=== PATIENT | female | born 1960 | race Caucasian/White ===

== ENCOUNTER → 2016-07-20 | Outpatient (CLI) | payer MEDICAID ==
[2016-07-20 08:35] LABS: Basophils % (A) 1 %; CH 31.8; CHCM 32.8; Eosinophils # (A) 0.1 k/uL (0-0.7); Eosinophils % (A) 3 %; HCT 42.3 % (34.0-46.0); HDW 2.02; HGB 13.6 gm/dL (11.4-16.0); Luc # (Auto) 0.16; Luc % (Auto) 4; Lymphocytes # (A) 1.8 k/uL (1.0-4.8); Lymphocytes % (A) 45 %; MCH 31.4 pg (25.0-35.0); MCHC 32.2 g/dL (31.0-37.0); MCV 97.5 fL (80.0-100.0); Mean Platelet Volume 6.9; Monocytes # (A) 0.3 k/uL (0-1.0); Monocytes % (A) 6 %; Neutrophils # (A) 1.6 k/uL (1.3-7.7); Neutrophils % (A) 41 %; RBC 4.34 m/uL (3.80-5.40); RDW 13.1 % (11.5-15.5); WBC (Perox) 4.06
[2016-07-20 08:42] LABS: Appearance,Urine Clear (Clear); Bilirubin,Urine Negative (Negative); Glucose,Urine (UA) Negative (Negative); Ketones,Urine Negative (Negative); Leukocyte Esterase,Urine Negative (Negative); Nitrite,Urine Negative (Negative); Protein,Urine Negative (Negative); Specific Gravity,Urine 1.009 (1.001-1.035); UA Billing (MACRO vs. MICRO) CHEM; Urobilinogen,Urine <2.0 mg/dL (<2.0)
[2016-07-20 08:43] LABS: ALT 33 U/L (9-52); AST 26 U/L (14-36); Alkaline Phosphatase 118 U/L (38-126); Anion Gap 8 mmol/L; Blood Urea Nitrogen 17 mg/dL (7-17); Calcium 9.4 mg/dL (8.4-10.2); Carbon Dioxide 30 mmol/L (22-30); Chloride 103 mmol/L (98-107); Cholesterol 250 mg/dL (<200); Creatine Kinase 75 U/L (30-135); Glucose 93 mg/dL (74-99); HDL Cholesterol 88 mg/dL (40-60); Non-African American GFR(MDRD) >60 (>60 ml/min/1.73 sqM); Potassium 4.1 mmol/L (3.5-5.1); Sodium 141 mmol/L (137-145); Total Bilirubin 0.7 mg/dL (0.2-1.3); Total Protein 7.3 g/dL (6.3-8.2); Triglycerides 65 mg/dL (<150); Uric Acid 4.2 mg/dL (3.7-7.4)
[2016-07-20 11:12] LABS: Hemoglobin A1C 5.6 % (4.2-6.1)
== END | disposition home or self-care (01) ==
LOC: LABWHC1 07:54
PROVIDERS: ATTEND Internal Medicine
DX: Z00.00 Encounter for general adult medical examination without abnormal findings (principal); M89.9 Disorder of bone, unspecified; E78.00 Pure hypercholesterolemia, unspecified; F41.9 Anxiety disorder, unspecified; E55.9 Vitamin D deficiency, unspecified
CPT/HCPCS: 36415; 80053; 80061; 81003; 82306; 82550; 83036; 84439; 84443; 84550; 85025

== ENCOUNTER → 2016-08-08 | Outpatient (CLI) | payer MEDICAID ==
--- NOTE | 2016-08-08 21:00 | WWHP ---
DATE OF SERVICE: 08/08/2016 CHIEF COMPLAINT: Patient is here for her routine gynecologic exam and mammogram. HPI: This is a 56-year-old P4, G4-0-0-3 with an LMP of 2008. She is status post vaginal hysterectomy for benign reasons. She has been using Estrace vaginal cream because of vaginal dryness and she has noticed significant improvement with this. She also is on Paroxetine for hot flashes, which does seem to help. She is without gynecologic complaints. PAST MEDICAL HISTORY: SVT with PVCs, benign paroxysmal positional vertigo and gastroesophageal reflux disease. Also she does have a history of mildly elevated cholesterol. Currently not requiring medications. MEDICATIONS: 1. Verapamil 40 mg b.i.d. 2. Paroxetine 10 mg daily. 3. Estrace vaginal cream twice weekly. 4. Vitamin B complex daily. 5. Magnesium 400 mg daily. 6. Vitamin D3 5000 units daily. 7. Biotin 5000 mcg daily. 8. Calcium 500 mg at bedtime. 9. Omeprazole 40 mg p.r.n. ALLERGIES: PENICILLIN AND SULFA BOTH OF WHICH CAUSED HIVES. PAST SURGICAL HISTORY: Vaginal hysterectomy in 2008, appendectomy age 5, laparoscopic cholecystectomy and D&C in the past. She also had device placed to help her monitor her heart rhythm. 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 SOCIAL HISTORY: She denies tobacco and drug use and has about 2 alcoholic drinks per year. 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 REVIEW OF SYSTEMS: She has gained 3 pounds over the last year. She denies respiratory, cardiac, or GI problems. PHYSICAL EXAM: Blood pressure 97/56. Height 5 feet 4 inches. Weight 158 pounds. Temperature 98.6, pulse 75. This is a well-developed, well-nourished white female who is alert and oriented x3 in no acute distress. HEENT is within normal limits. NECK: Supple without mass or thyromegaly. CHEST AND LUNGS: Clear to auscultation. HEART: Regular rate and rhythm. Breasts are without mass or discharge. Axillary exam is negative for adenopathy. BACK: Negative for CVA tenderness. ABDOMEN: Soft, nontender, without palpable masses. PELVIC EXAM: External genitalia reveals mild atrophy without lesions. Vagina reveals mild atrophy without lesions. There is no evidence of prolapse. Bimanual exam is negative for mass or tenderness. Rectovaginal exam negative for mass or tenderness and is negative for occult blood. EXTREMITIES: Nontender. IMPRESSION: 1. A 56-year-old menopausal female, status post vaginal hysterectomy for benign reasons with normal gynecologic exam. 2. Improvement of vaginal dryness with estrogen cream. PLAN: 1. Pap smears have been discontinued. 2. Self-breast examination was discussed. 3. Mammogram will be done today. 4. Osteoporosis prevention was discussed. 5. Continue Estrace vaginal cream twice weekly. 6. She will return in one year.
--- NOTE | 2016-08-10 10:49 | MM ---
Reason for exam: screening (asymptomatic). Last mammogram was performed 1 year and 1 month ago. Physical Findings: A clinical breast exam by your physician is recommended on an annual basis and results should be correlated with mammographic findings. MG 3D Screening Mammo W/Cad Bilateral CC and MLO view(s) were taken. Prior study comparison: July 20, 2015, bilateral MG 3d screening mammo w/cad. The breast tissue is heterogeneously dense. This may lower the sensitivity of mammography. Electronic device left breast. No significant changes when compared with prior studies. ASSESSMENT: Benign, BI-RAD 2 RECOMMENDATION: Routine screening mammogram of both breasts in 1 year.
== END ==
LOC: WWCWWP 10:01
PROVIDERS: ATTEND Obstetrics & Gynecology
DX: Z12.31 Encounter for screening mammogram for malignant neoplasm of breast (principal)
CPT/HCPCS: 77063; G0202

== ENCOUNTER → 2017-09-11 | Outpatient (CLI) | payer MEDICAID ==
[2017-09-11 08:57] LABS: Basophils % (A) 0 %; Eosinophils # (A) 0.1 k/uL (0-0.7); Eosinophils % (A) 4 %; HCT 43.4 % (34.0-46.0); HGB 14.1 gm/dL (11.4-16.0); Lymphocytes # (A) 1.6 k/uL (1.0-4.8); Lymphocytes % (A) 44 %; MCH 30.8 pg (25.0-35.0); MCHC 32.6 g/dL (31.0-37.0); MCV 94.7 fL (80.0-100.0); Mean Platelet Volume 7.1; Monocytes # (A) 0.2 k/uL (0-1.0); Monocytes % (A) 7 %; Neutrophils # (A) 1.5 k/uL (1.3-7.7); Neutrophils % (A) 42 %; Platelet Count 244 k/uL (150-450); RBC 4.59 m/uL (3.80-5.40); RDW 13.3 % (11.5-15.5); WBC 3.5 k/uL (3.8-10.6)
[2017-09-11 09:36] LABS: ALT 38 U/L (9-52); AST 24 U/L (14-36); Albumin 4.1 g/dL (3.5-5.0); Alkaline Phosphatase 116 U/L (38-126); Anion Gap 9 mmol/L; Blood Urea Nitrogen 15 mg/dL (7-17); Calcium 9.4 mg/dL (8.4-10.2); Carbon Dioxide 28 mmol/L (22-30); Chloride 105 mmol/L (98-107); Cholesterol 204 mg/dL (<200); Creatine Kinase 54 U/L (30-135); Glucose 95 mg/dL (74-99); HDL Cholesterol 65 mg/dL (40-60); LDL Cholesterol,Calculated 120 mg/dL (0-99); Potassium 4.7 mmol/L (3.5-5.1); Sodium 142 mmol/L (137-145); Total Bilirubin 0.3 mg/dL (0.2-1.3); Total Protein 6.9 g/dL (6.3-8.2); Triglycerides 94 mg/dL (<150)
[2017-09-11 09:43] LABS: T4, Free (Free Thyroxine) 0.93 ng/dL (0.78-2.19)
[2017-09-11 19:07] LABS: Hemoglobin A1C 5.3 % (4.0-6.0)
== END | disposition home or self-care (01) ==
LOC: LABWHC1 08:19
PROVIDERS: ATTEND Internal Medicine
DX: Z00.00 Encounter for general adult medical examination without abnormal findings (principal); K21.9 Gastro-esophageal reflux disease without esophagitis; E78.00 Pure hypercholesterolemia, unspecified
CPT/HCPCS: 36415; 80053; 80061; 82550; 83036; 84439; 84443; 85025

== ENCOUNTER → 2018-08-27 | Outpatient (CLI) | payer MEDICAID ==
[2018-08-27 12:58] VITALS: BP 103/60; PULSE 65; RESP 16; TEMP 98.2
--- NOTE | 2018-08-27 13:35 | P.HPOB ---
History of Present Illness H&P Date: 08/27/18 Chief Complaint: The patient is here for her routine gynecologic exam and ma mmogram. This is a 58-year-old with an LMP of 2008. The patient is status post vaginal hysterectomy for benign reasons. She continues to use Estrace vaginal cream PRN for vaginal dryness and she states this is helpful. She also uses paroxetine PRN for hot flashes which was prescribed by Dr. Porras. She is without gynecologic complaints. Review of Systems She is getting about 17 pounds over the past 2 years. She attributes this to decreased activity while in graduate school. She denies respiratory or cardiac problems. G.I.: occasional gastric reflux symptoms. Past Medical History Past Medical History: GERD/Reflux, Skin Disorder Additional Past Medical History / Comment(s): History of intermittent SVT with PVCs. hx migraine, hiatal hernia, occular migraine, benign paroxysmal postional vertigo. 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 History of Any Multi-Drug Resistant Organisms: None Reported Past Surgical History: Appendectomy, Cholecystectomy, EPS, Hysterectomy, Tubal Ligation Additional Past Surgical History / Comment(s): Vaginal hysterectomy in 2008. D&C. Colonoscopy 2013. 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 - Past Family History Father Family Medical History: Coronary Artery Disease (CAD), Myocardial Infarction ([place]) Additional Family Medical History / Comment(s): . Mother Family Medical History: AICD/Pacemaker, Cancer Additional Family Medical History / Comment(s): Esophageal cancer. Son(s) Additional Family Medical History / Comment(s): pts. son from hypertrophic cardiomyopathy 2006 Medications and Allergies Home Medications Medication Instructions Recorded Confirmed Type Acetaminophen [Tylenol] 325 mg PO DIRECTED PRN 01/11/16 08/27/18 History Biotin 5,000 mcg PO DAILY 01/11/16 08/27/18 History Cholecalciferol [Vitamin D3 (25 5,000 unit PO DAILY 01/11/16 08/27/18 History Mcg = 1000 Iu)] Magnesium 400 mg PO DAILY 01/11/16 08/27/18 History PARoxetine [Paxil] 10 mg PO HS PRN 01/11/16 08/27/18 History Verapamil [Isoptin] 40 mg PO DAILY 01/11/16 08/27/18 History Vitamin B Complex 1 each PO DAILY 01/11/16 08/27/18 History Allergies Allergy/AdvReac Type Severity Reaction Status Date / Time Penicillins Allergy Rash/Hives Verified 08/27/18 12:59 Sulfa (Sulfonamide Allergy Rash/Hives Verified 08/27/18 12:59 Antibiotics) Exam Vital Signs Temp Pulse Resp BP Pulse Ox 08/27/18 12:55 98.2 F 65 16 103/60 97 Intake and Output 08/26/18 08/27/18 08/27/18 22:59 06:59 14:59 Other: Weight 79.379 kg Height 5'4", weight 175 pounds, BMI 30.0. This is a well-developed well-nourished white female who is alert and oriented times 3 in no acute distress. HEENT: Within normal limits. NECK: Supple without mass or thyromegaly. CHEST AND LUNGS: Clear to auscultation. HEART: Regular rate and rhythm. BREASTS: Are without mass or discharge. AXILLARY EXAM: Negative for adenopathy. BACK: Negative for CVA tenderness. ABDOMEN: Soft, nontender, without palpable masses. PELVIC EXAM: External genitalia appears normal with mild atrophy. Vagina appears normal with minimal atrophy. There is no evidence of prolapse. Bimanual examination is negative for mass or tenderness. RECTAL EXAM: Rectovaginal exam is negative for mass or tenderness and is negative for occult blood. EXTREMITIES: Nontender. IMPRESSION: 1. 58-year-old menopausal female status post vaginal hysterectomy for benign reasons, with normal gynecologic exam. 2. Doing well with vaginal estrogen cream used PRN for vaginal dryness. 3. Doing well with paroxetine PRN for hot flashes as prescribed by her PCP. PLAN: 1. Pap smears have been discontinued. 2. Self breast awareness was discussed with the patient. 3. Screening mammogram will be done today. 4. Osteoporosis prevention was discussed. I have stressed the importance of adequate calcium, vitamin D and regular exercise. Recommended amounts of calcium and vitamin D were also discussed. I have recommended that she repeat the bone density testing since her last one was done on 04/21/2014. The order slip will be sent to the patient for this. 5. Continue Estrace vaginal cream as directed. The electronic prescription will be sent to [facility] pharmacy in [facility]. 6.She was advised to return in one year for her annual well woman exam.
--- NOTE | 2018-08-28 09:42 | MM ---
Reason for exam: screening (asymptomatic). Last mammogram was performed 2 years and 1 month ago. Physical Findings: A clinical breast exam by your physician is recommended on an annual basis and results should be correlated with mammographic findings. MG 3D Screening Mammo W/Cad Bilateral CC and MLO view(s) were taken. Prior study comparison: August 08, 2016, bilateral MG 3d screening mammo w/cad. July 20, 2015, bilateral MG 3d screening mammo w/cad. The breast tissue is heterogeneously dense. This may lower the sensitivity of mammography. No significant changes when compared with prior studies. ASSESSMENT: Benign, BI-RAD 2 RECOMMENDATION: Routine screening mammogram of both breasts in 1 year.
== END | disposition home or self-care (01) ==
LOC: WWCWWP 12:30
PROVIDERS: ATTEND Obstetrics & Gynecology
DX: Z12.31 Encounter for screening mammogram for malignant neoplasm of breast (principal)
CPT/HCPCS: 77063; 77067

== ENCOUNTER → 2018-09-13 | Outpatient (CLI) | payer MEDICAID ==
[2018-09-13 09:07] LABS: Basophils % (A) 1 %; Eosinophils # (A) 0.2 k/uL (0-0.7); Eosinophils % (A) 3 %; HGB 13.4 gm/dL (11.4-16.0); Lymphocytes # (A) 1.7 k/uL (1.0-4.8); Lymphocytes % (A) 29 %; MCH 30.5 pg (25.0-35.0); MCV 95.3 fL (80.0-100.0); Mean Platelet Volume 7.5; Monocytes # (A) 0.2 k/uL (0-1.0); Monocytes % (A) 4 %; Neutrophils # (A) 3.8 k/uL (1.3-7.7); Neutrophils % (A) 63 %; Platelet Count 266 k/uL (150-450); RDW 13.5 % (11.5-15.5)
[2018-09-13 15:37] LABS: African American GFR (CKD) 94.9 (60.0-200.0); Albumin 4.2 g/dL (3.80-4.90); Albumin/Globulin Ratio 1.75 (1.60-3.17); Anion Gap 4.7 mmol/L (4.00-12.00); Calcium 9.3 mg/dL (8.7-10.3); Carbon Dioxide 27.3 mmol/L (21.6-31.8); Globulin 2.4 g/dL (1.6-3.3); LDL Cholesterol,Calculated 158.8 mg/dL (0.0-131.0); Potassium 4.3 mmol/L (3.5-5.5); Total Bilirubin 0.3 mg/dL (0.3-1.2); Total Protein 6.6 g/dL (6.2-8.2); VLDL Calculation 22.2 mg/dL (5.00-40.00)
[2018-09-13 15:44] LABS: T4, Free (Free Thyroxine) 1.1 ng/dL (0.80-1.80)
[2018-09-13 16:26] LABS: Hemoglobin A1C 5.5 % (4.0-6.0)
== END | disposition home or self-care (01) ==
LOC: LABWHC1 08:38
PROVIDERS: ATTEND Internal Medicine
DX: E78.5 Hyperlipidemia, unspecified (principal); E55.9 Vitamin D deficiency, unspecified; K21.9 Gastro-esophageal reflux disease without esophagitis
CPT/HCPCS: 36415; 80053; 80061; 82306; 83036; 84439; 84443; 85025

== ENCOUNTER → 2018-09-18 | Outpatient (CLI) | payer MEDICAID ==
--- NOTE | 2018-09-18 10:12 | BD ---
EXAMINATION TYPE: Axial Bone Density DATE OF EXAM: 09/18/2018 COMPARISON: NONE CLINICAL HISTORY: Postmenopausal female. Osteoporosis screening. Height: 64.5 Weight: 168.2 FRAX RISK QUESTIONS: Alcohol (3 or more units per day): no Family History (Parent hip fracture): no Glucocorticoids (More than 3mos): no (Ex: prednisone, prednisolone, methylprednisolone, dexamethasone, and hydrocortisone). History of Fracture in Adulthood: no Secondary Osteoporosis: 1. Type 1 Diabetes: no 2. Hyperthyroidism: no 3. Menopause before 45: no 4. Malnutrition: no 5. Chronic liver disease: no Rheumatoid Arthritis: no Current Tobacco Use: no RISK FACTORS HISTORY OF: Family History of Osteoporosis: yes Active: yes Diet low in dairy products/other sources of calcium: no Postmenopausal woman: 2008 partial hysterectomy Lost more than 2 inches in height since high school: no MEDICATIONS: estrace as needed, vitamins, eye med, prilosec as needed Additional History: EXAM MEASUREMENTS: Bone mineral densitometry was performed using the [employer] System. Bone mineral density as measured about the Lumbar spine is: ----- L1-L4(G/cm2): 1.182 T Score Values are as follows: ----- L2: -0.5 ----- L3: 0.2 ----- L4: 0.5 ----- L1-L4: 0.0 Bone mineral density has: decreased -7.9 % since study of: 02.18.2015 Bone mineral density about the R hip (g/cm2): 0.842 Bone mineral density about the L hip (g/cm2): 0.931 T Score values are as follows: -----R Neck: -1.4 -----L Neck: -0.8 -----R Total: -0.4 -----L Total: -0.1 Bone mineral density has: increased % since study of: 02.18.2015 IMPRESSION: Osteopenia (T Score between -2.5 and -1). There is slightly increased risk of fracture and the patient may be considered for treatment. Re-Screen 2-5 years. NOTE: T-SCORE=SD OF THE YOUNG ADULT MEAN.
--- NOTE | 2018-09-18 12:24 | P.PN ---
Progress Note - Text Progress Note Date: 09/18/18 OUTPATIENT FOLLOW-UP NOTE TEST(S)/RESULTS: bone density test done on 09/18/2018 shows stable osteopenia. METHOD OF NOTIFICATION: she was notified by phone. PATIENT COMMENTS: the patient states she had a low vitamin D level checked recently and will be taking extra vitamin D with a retest in [address] Porras. DIAGNOSIS: osteopenia which is stable DISCUSSION: I have stressed the importance of adequate calcium, vitamin D and regular exercise. PLAN: repeat bone density testing in 3 years. She will also return in one year for her annual well woman exam.
== END | disposition home or self-care (01) ==
LOC: RADBDWWP 07:56
PROVIDERS: ATTEND Obstetrics & Gynecology
DX: M85.80 Other specified disorders of bone density and structure, unspecified site (principal)
CPT/HCPCS: 77080

== ENCOUNTER → 2018-10-02 | Day surgery (SDC) | payer MEDICAID ==
[2018-10-01 08:38] VITALS: BMI 28.0
[~2018-10-02] MED LIST: LACTATED RINGERS 1,000 ML IV SCH; LIDOCAINE 1% 20 ML VIAL (10MG/ML) FOR IV START INTRADERMA PRN; LIDOCAINE 1% INJ 10MG/ML (20 ML MDV) ONE; PROPOFOL 10 MG/ML 20 ML VIAL IV ONE
[2018-10-02 10:47] VITALS: TEMP 97.2
--- NOTE | 2018-10-02 12:11 | P.PCN ---
Date of Procedure: 10/02/18 Procedure(s) Performed: BRIEF HISTORY: Patient is a 58-year-old pleasant female scheduled for an elective colonoscopy as a part of screening for colorectal neoplasia. PROCEDURE PERFORMED: Colonoscopy. PREOPERATIVE DIAGNOSIS: Screening for colon cancer. IV sedation per Anesthesia. PROCEDURE: After informed consent was obtained, the patient, was brought into the endoscopy unit. IV sedation was administered by Anesthesia under continuous monitoring. Digital rectal examination was normal. Initially the Olympus CF-160 flexible video colonoscope was then inserted in the rectum, gradually advanced into the cecum without any difficulty. Careful examination was performed as the scope was gradually being withdrawn. Ileocecal valve and the appendiceal orifice were visualized and appeared normal. Prep was excellent. Mucosa of the cecum, ascending colon, transverse colon, descending colon, sigmoid colon, and rectum appeared normal. Scattered sigmoidal diverticulosis Retroflexion was performed in the rectum and no lesions were seen. The patient tolerated the procedure well. IMPRESSION: Normal-appearing colon from rectum to cecum with no evidence of colitis or colorectal neoplasia . Scattered sigmoid diverticulosis. RECOMMENDATIONS: Findings of this examination were discussed with the patient as well as a family. She was advised to have a repeat screening colonoscopy in 10 years..
[2018-10-02 12:18] VITALS: RESP 16
[2018-10-02 12:42] VITALS: BP 108/69; PULSE 59
== END | disposition home or self-care (01) ==
LOC: ORWHC2ENDO 10:08
PROVIDERS: ATTEND Internal Medicine Gastroenterology
DX: Z12.11 Encounter for screening for malignant neoplasm of colon (principal); K57.30 Diverticulosis of large intestine without perforation or abscess without bleeding; Z88.0 Allergy status to penicillin; Z88.2 Allergy status to sulfonamides; K21.9 Gastro-esophageal reflux disease without esophagitis; Z79.899 Other long term (current) drug therapy
CPT/HCPCS: J2001; J2704; G0121; 45378

== ENCOUNTER → 2018-11-28 | Outpatient (CLI) | payer MEDICAID ==
[2018-11-28 11:31] LABS: African American GFR (CKD) 94.9 (60.0-200.0); Albumin 4.3 g/dL (3.80-4.90); Albumin/Globulin Ratio 1.95 (1.60-3.17); Anion Gap 6.1 mmol/L (4.00-12.00); Calcium 9.6 mg/dL (8.7-10.3); Carbon Dioxide 28.9 mmol/L (21.6-31.8); Chol/HDL Ratio 2.63; Globulin 2.2 g/dL (1.6-3.3); LDL Cholesterol,Calculated 89.4 mg/dL (0.0-131.0); Potassium 4.2 mmol/L (3.5-5.5); Total Bilirubin 0.6 mg/dL (0.3-1.2); Total Protein 6.5 g/dL (6.2-8.2); VLDL Calculation 19.6 mg/dL (5.00-40.00)
== END | disposition home or self-care (01) ==
LOC: LABWHC1 07:22
PROVIDERS: ATTEND Internal Medicine
DX: E78.2 Mixed hyperlipidemia (principal); E55.9 Vitamin D deficiency, unspecified
CPT/HCPCS: 36415; 80053; 80061; 82306

== ENCOUNTER → 2019-07-22 | Outpatient (CLI) | payer MEDICAID | END | disposition home or self-care (01) | LOC: LABWHC1 10:16 | PROVIDERS: ATTEND Pediatrics Pediatric Infectious Diseases | DX: U07.1 COVID-19 (principal) | CPT/HCPCS: 87635 ==

== ENCOUNTER → 2019-10-14 | Outpatient (CLI) | payer MEDICAID ==
[2019-10-14 10:43] VITALS: BP 105/69; PULSE 60; RESP 18; TEMP 98.1
--- NOTE | 2019-10-14 11:23 | P.HPOB ---
History of Present Illness H&P Date: 10/14/19 Chief Complaint: The patient is here for her routine gynecologic exam and ma mmogram. This is a 59-year-old with an LMP of 2008. The patient is status post vaginal hysterectomy for benign reasons. She continues to use vaginal estrogen cream for vaginal dryness. She is without gynecologic complaints. Review of Systems She states her weight can fluctuate and more recently she has gained some weight. She has a net weight loss of 3 pounds since last year. She denies respiratory, cardiac or GI problems. Past Medical History Past Medical History: GERD/Reflux Additional Past Medical History / Comment(s): History of intermittent SVT with PVCs. , hx occular migraines, hiatal hernia, benign paroxysmal postional vertigo. , has Loop Recorder. History of osteopenia. 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 History of Any Multi-Drug Resistant Organisms: None Reported Past Surgical History: Appendectomy, Cholecystectomy, EPS, Hysterectomy, Tubal Ligation Additional Past Surgical History / Comment(s): Vaginal hysterectomy in 2008. D&C. 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 - Past Family History Father Family Medical History: Coronary Artery Disease (CAD), Myocardial Infarction ([place]) Additional Family Medical History / Comment(s): . Mother Family Medical History: Cancer Additional Family Medical History / Comment(s): esophageal cancer Son(s) Additional Family Medical History / Comment(s): pts. son from hypertrophic cardiomyopathy 2006 Medications and Allergies Home Medications Medication Instructions Recorded Confirmed Type Cholecalciferol [Vitamin D3 (25 5,000 unit PO HS 01/11/16 10/14/19 History Mcg = 1000 Iu)] Magnesium 400 mg PO DAILY 01/11/16 10/14/19 History Omeprazole [PriLOSEC] 40 mg PO Q72H 10/01/18 10/14/19 History Vit C/E/Zn/Coppr/Lutein/Zeaxan 1 each PO HS 10/01/18 10/14/19 History [Preservision Areds 2 Softgel] Acetaminophen [Tylenol] 325 mg PO DAILY PRN 10/14/19 10/14/19 History Cetirizine HCl [Zyrtec] 10 mg PO HS 10/14/19 10/14/19 History Estradiol Cream [Estrace Cream 1 gm VAGINAL DIRECTED 10/14/19 10/14/19 History 0.01%] PARoxetine [Paxil] 10 mg PO HS 10/14/19 10/14/19 History Allergies Allergy/AdvReac Type Severity Reaction Status Date / Time Penicillins Allergy Rash/Hives Verified 10/14/19 10:34 Sulfa (Sulfonamide Allergy Rash/Hives Verified 10/14/19 10:34 Antibiotics) Exam Vital Signs Temp Pulse Resp BP Pulse Ox 10/14/19 10:38 98.1 F 60 18 105/69 98 Intake and Output 10/13/19 10/14/19 10/14/19 22:59 06:59 14:59 Other: Weight 78.018 kg Height 5 feet 4-1/2 inches, weight 172 pounds, BMI 29.1. This is a well-developed well-nourished white female who is alert and oriented times 3 in no acute distress. HEENT: Within normal limits. NECK: Supple without mass or thyromegaly. CHEST AND LUNGS: Clear to auscultation. HEART: Regular rate and rhythm. BREASTS: Are without mass or discharge. AXILLARY EXAM: Negative for adenopathy. BACK: Negative for CVA tenderness. ABDOMEN: Soft, nontender, without palpable masses. PELVIC EXAM: External genitalia appears normal with mild atrophy. Vagina appears normal with minimal atrophy. There is no evidence of prolapse. Bimanual examination is negative for mass or tenderness. RECTAL EXAM: Rectovaginal exam is negative for mass or tenderness and is negative for occult blood. EXTREMITIES: Nontender. IMPRESSION: 1. 59-year-old menopausal female with normal gynecologic exam. 2. Doing well with vaginal estrogen cream used for vaginal dryness. 3. History of osteopenia. PLAN: 1. Pap smears have been discontinued. 2. Self breast awareness was discussed with the patient. 3. Screening mammogram will be done today. 4. Osteoporosis prevention was discussed. I have stressed the importance of adequate calcium, vitamin D and regular exercise. Recommended amounts of calcium and vitamin D were also discussed. Last bone density test was on 09/18/2018 and we'll plan on repeating this in 2020. 5. Continue Estrace vaginal cream as directed. The electronic prescription will be sent to [facility] pharmacy in [facility]. 6. She was advised to return in one year for her annual well woman exam.
== END | disposition home or self-care (01) ==
LOC: WWCWWP 10:24
PROVIDERS: ATTEND Obstetrics & Gynecology
DX: Z53.9 Procedure and treatment not carried out, unspecified reason (principal)

== ENCOUNTER → 2019-10-14 | Outpatient (CLI) | payer MEDICAID ==
--- NOTE | 2019-10-20 10:35 | MM ---
Reason for exam: screening (asymptomatic). Last mammogram was performed 1 year and 2 months ago. History: Patient is postmenopausal. Physical Findings: A clinical breast exam by your physician is recommended on an annual basis and results should be correlated with mammographic findings. MG 3D Screening Mammo W/Cad Bilateral CC and MLO view(s) were taken. Prior study comparison: August 27, 2018, bilateral MG 3d screening mammo w/cad. August 08, 2016, bilateral MG 3d screening mammo w/cad. The breast tissue is extremely dense which could obscure a lesion on mammography. Loop recorder left breast. No significant changes when compared with prior studies. ASSESSMENT: Benign, BI-RAD 2 RECOMMENDATION: Routine screening mammogram of both breasts in 1 year.
== END | disposition home or self-care (01) ==
LOC: RADMAMWWP 11:17
PROVIDERS: ATTEND Obstetrics & Gynecology
DX: Z12.31 Encounter for screening mammogram for malignant neoplasm of breast (principal)
CPT/HCPCS: 77063; 77067

== ENCOUNTER → 2020-02-18 | Outpatient (CLI) | payer MEDICAID ==
[2020-02-18 11:10] LABS: Basophils % (A) 0 %; Eosinophils # (A) 0.1 k/uL (0-0.7); Eosinophils % (A) 2 %; HCT 42.7 % (34.0-46.0); HGB 14.1 gm/dL (11.4-16.0); Lymphocytes # (A) 1.5 k/uL (1.0-4.8); Lymphocytes % (A) 35 %; MCH 32.1 pg (25.0-35.0); MCV 97.2 fL (80.0-100.0); Mean Platelet Volume 7.2; Monocytes # (A) 0.2 k/uL (0-1.0); Monocytes % (A) 5 %; Neutrophils # (A) 2.4 k/uL (1.3-7.7); Neutrophils % (A) 56 %; Platelet Count 282 k/uL (150-450); RBC 4.39 m/uL (3.80-5.40); RDW 12.8 % (11.5-15.5); WBC 4.3 k/uL (3.8-10.6)
[2020-02-18 17:46] LABS: African American GFR (CKD) 81.1 (60.0-200.0); Albumin 4.5 g/dL (3.80-4.90); Albumin/Globulin Ratio 1.96 (1.60-3.17); Anion Gap 7.6 mmol/L (4.00-12.00); BUN/Creat Ratio 15.56 Ratio (12.00-20.00); Calcium 9.7 mg/dL (8.7-10.3); Carbon Dioxide 28.4 mmol/L (21.6-31.8); Chol/HDL Ratio 3.62; Globulin 2.3 g/dL (1.6-3.3); LDL Cholesterol,Calculated 212.6 mg/dL (0.0-131.0); Potassium 4.8 mmol/L (3.5-5.5); Total Bilirubin 0.6 mg/dL (0.2-1.2); Total Protein 6.8 g/dL (6.2-8.2); VLDL Calculation 12.4 mg/dL (5.00-40.00)
== END | disposition home or self-care (01) ==
LOC: LABWHC1 09:36
PROVIDERS: ATTEND Internal Medicine
DX: Z00.00 Encounter for general adult medical examination without abnormal findings (principal); E55.9 Vitamin D deficiency, unspecified
CPT/HCPCS: 36415; 80053; 80061; 82306; 84443; 85025

== ENCOUNTER → 2020-11-10 | Outpatient (CLI) | payer OTHER ==
[2020-11-10 08:19] VITALS: BP 101/59; PULSE 57; RESP 12; TEMP 98
--- NOTE | 2020-11-10 09:10 | P.HPOB ---
History of Present Illness H&P Date: 11/10/20 Chief Complaint: The patient is here for her routine gynecologic exam. This is a 60-year-old 003 with an LMP of 2008. The patient is without gynecologic complaints. She is status post vaginal hysterectomy for benign reasons. She continues to use estradiol vaginal cream for vaginal dryness. She states she does not have any significant problems with hot flashes. Review of Systems Weight has been stable. She frequently feels tired. She denies respiratory problems. Cardiac: Occasional palpitations which is not new for her. She sees Dr. Denson for this. GI: Occasional gastric reflux symptoms. Past Medical History Past Medical History: GERD/Reflux Additional Past Medical History / Comment(s): History of intermittent SVT with PVCs. , hx occular migraines, hiatal hernia, benign paroxysmal postional vertigo. , has Loop Recorder. Osteopenia. 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 History of Any Multi-Drug Resistant Organisms: None Reported Past Surgical History: Appendectomy, Cholecystectomy, EPS, Hysterectomy, Tubal Ligation Additional Past Surgical History / Comment(s): Vaginal hysterectomy in 2008. D&C. Colonoscopy 2019(next after 10yr), EGD, LOOP RECORDER. 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 - Past Family History Father Family Medical History: Coronary Artery Disease (CAD), Myocardial Infarction ([place]) Additional Family Medical History / Comment(s): . Mother Family Medical History: Cancer Additional Family Medical History / Comment(s): of esophageal cancer Son(s) Additional Family Medical History / Comment(s): pts. son from hypertrophic cardiomyopathy 2006 Medications and Allergies Home Medications Medication Instructions Recorded Confirmed Type Cholecalciferol [Vitamin D3 (25 5,000 unit PO HS 01/11/16 11/10/20 History Mcg = 1000 Iu)] Omeprazole [PriLOSEC] 40 mg PO Q72H 10/01/18 11/10/20 History Acetaminophen [Tylenol] 325 mg PO DAILY PRN 10/14/19 10/14/19 History Cetirizine HCl [Zyrtec] 10 mg PO HS 10/14/19 11/10/20 History Estradiol Cream [Estrace Cream 1 gm VAGINAL DIRECTED #1 tube 10/21/19 11/10/20 Rx 0.01%] Multivitamin [Multivitamins Adult 1 cap PO DAILY 11/10/20 11/10/20 History Gummies] Allergies Allergy/AdvReac Type Severity Reaction Status Date / Time Penicillins Allergy Rash/Hives Verified 11/10/20 08:01 Sulfa (Sulfonamide Allergy Rash/Hives Verified 11/10/20 08:01 Antibiotics) Exam Vital Signs Temp Pulse Resp BP Pulse Ox 11/10/20 08:05 98.0 F 57 L 12 101/59 98 Intake and Output 11/09/20 11/10/20 11/10/20 22:59 06:59 14:59 Other: Weight 78.471 kg Height 5 feet 4 inches, weight 173 pounds, BMI 29.7. This is a well-developed well-nourished white female who is alert and oriented times 3 in no acute distress. HEENT: Within normal limits. NECK: Supple without mass or thyromegaly. CHEST AND LUNGS: Clear to auscultation. HEART: Regular rate and rhythm. BREASTS: Cardiac loop recorder is palpable at the upper aspect of the left breast. The breasts are otherwise without mass or discharge. AXILLARY EXAM: Negative for adenopathy. BACK: Negative for CVA tenderness. ABDOMEN: Soft, nontender, without palpable masses. PELVIC EXAM: External genitalia appears normal with mild atrophy. Vagina appears normal mild atrophy. There is no evidence of prolapse. Bimanual examination is negative for mass or tenderness. RECTAL EXAM: Rectovaginal exam is negative for mass or tenderness and is negative for occult blood. EXTREMITIES: Nontend6.er. IMPRESSION: 1. 60-year-old menopausal female was status post vaginal hysterectomy for benign reasons, with normal gynecologic exam. 2. Doing well using vaginal estrogen cream for vaginal dryness. 3. History of osteopenia. PLAN: 1. Pap smears have been discontinued. 2. Self breast awareness was discussed with the patient. We have also discussed symptoms associated with inflammatory breast cancer. 3. Screening mammogram is due and the order slip was given to the patient for this. She states she is due to have her cardiac loop recorder removed in the near future and will wait until after this to have her mammogram. 4. Osteoporosis prevention was discussed. I have stressed the importance of adequate calcium, vitamin D and regular exercise. Recommended amounts of calcium and vitamin D were also discussed. We will plan on repeating the bone density test in 1 year. 5. Continue estradiol vaginal cream 1 g into the vagina 2 times weekly. The electronic prescription will be sent to [facility] pharmacy in [facility]. 6. She has completed her Covid vaccination series. 7. She was advised to return in one year for her annual well woman exam.
== END ==
LOC: WWCWWP 07:58
PROVIDERS: ATTEND Obstetrics & Gynecology
DX: Z01.419 Encounter for gynecological examination (general) (routine) without abnormal findings (principal); N89.8 Other specified noninflammatory disorders of vagina; Z78.0 Asymptomatic menopausal state; Z87.39 Personal history of other diseases of the musculoskeletal system and connective tissue; Z90.710 Acquired absence of both cervix and uterus; K21.9 Gastro-esophageal reflux disease without esophagitis; Z88.0 Allergy status to penicillin; Z88.2 Allergy status to sulfonamides

== ENCOUNTER → 2020-12-08 | Outpatient (CLI) | payer OTHER ==
--- NOTE | 2020-12-09 12:04 | MM ---
Reason for exam: screening (asymptomatic). Last mammogram was performed 1 year and 2 months ago. History: Patient is postmenopausal. Physical Findings: A clinical breast exam by your physician is recommended on an annual basis and results should be correlated with mammographic findings. MG 3D Screening Mammo W/Cad Bilateral CC and MLO view(s) were taken. Prior study comparison: October 14, 2019, bilateral MG 3d screening mammo w/cad. August 27, 2018, bilateral MG 3d screening mammo w/cad. The breast tissue is heterogeneously dense. This may lower the sensitivity of mammography. Focal asymmetry upper outer right breast zone A. This finding is changed when compared with previous exams. ASSESSMENT: Incomplete: need additional imaging evaluation, BI-RAD 0 RECOMMENDATION: Special view mammogram of the right breast. If lesion persists on supplemental views, image directed ultrasound is recommended. [facility] will attempt to contact patient to return for supplemental views and ultrasound if indicated.
== END | disposition home or self-care (01) ==
LOC: RADMAMWWP 08:34
PROVIDERS: ATTEND Obstetrics & Gynecology
DX: Z12.31 Encounter for screening mammogram for malignant neoplasm of breast (principal); Z80.3 Family history of malignant neoplasm of breast
CPT/HCPCS: 77063; 77067

== ENCOUNTER → 2020-12-15 | Outpatient (CLI) | payer OTHER ==
--- NOTE | 2020-12-15 08:41 | MM ---
Reason for exam: additional evaluation requested from abnormal screening. Last mammogram was performed less than 1 month ago. History: Patient is postmenopausal. Taking estrogen for 2 years. Physical Findings: Nurse did not find any significant physical abnormalities on exam. MG 3D Work Up W/Cad RT Spot compression CC, spot compression MLO, and LM view(s) were taken of the right breast. Prior study comparison: December 08, 2020, bilateral MG 3d screening mammo w/cad. October 14, 2019, bilateral MG 3d screening mammo w/cad. The breast tissue is heterogeneously dense. This may lower the sensitivity of mammography. There is no discrete abnormality including area of concern. These results were verbally communicated with the patient and result sheet given to the patient on 12/15/20. ASSESSMENT: Probably benign, BI-RAD 3 RECOMMENDATION: Follow-up diagnostic mammogram of the right breast in 6 months.
== END | disposition home or self-care (01) ==
LOC: RADMAMWWP 07:39
PROVIDERS: ATTEND Obstetrics & Gynecology
DX: R92.8 Other abnormal and inconclusive findings on diagnostic imaging of breast (principal)
CPT/HCPCS: 77061; 77065

== ENCOUNTER → 2021-01-24 | Outpatient (CLI) | payer OTHER ==
[2021-01-24 20:32] LABS: Chol/HDL Ratio 2.62 Ratio
== END | disposition home or self-care (01) ==
LOC: LABWHC1 08:33
PROVIDERS: ATTEND Nurse Practitioner Adult Health
DX: E78.5 Hyperlipidemia, unspecified (principal)
CPT/HCPCS: 36415; 80061

== ENCOUNTER → 2022-11-01 | Outpatient (CLI) | payer OTHER ==
--- NOTE | 2022-11-01 20:20 | US ---
EXAMINATION TYPE: US carotid duplex BILAT DATE OF EXAM: 11/01/2022 COMPARISON: NONE CLINICAL INDICATION: Female, 62 years old with history of [id number]; TECHNIQUE: Carotid duplex ultrasound examination. Indirect Doppler criteria was utilized. 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 Left significant stenosis. Left internal carotid artery systolic velocity 173 is compatible with a moderate stenosis between 50 and 69%. IMPRESSION: Moderate left internal carotid artery stenosis between 50 and 69%. Correlate with the patient's sympt oms. Criteria for Assigning % of Stenosis / Diameter reduction (Estimation based on the indirect measurements of the internal carotid artery velocities (ICA PSV). 1. Normal (no stenosis)=ICA PSV < 125 cm/s: ratio < 2.0: ICA EDV<40 cm/s. 2. Less than 50% stenosis=ICA PSV < 125 cm/s: ratio < 2.0: ICA EDV<40 cm/s. 3. 50 to 69% stenosis=ICA PSV of 125 to 230 cm/s: ration 2.0 ? 4.0: ICA EDV 40-100 cm/s. 4. Greater than 70% stenosis to near occlusion= ICA PSV > 230 cm/s: ratio > 4.0: ICA EDV > 100 cm/s. 5. Near occlusion= ICA PSV velocities may be low or undetectable: variable ratio and ICA EDV. 6. Total occlusion=unable to detect flow.
--- NOTE | 2022-11-01 23:22 | BD ---
EXAMINATION TYPE: Axial Bone Density DATE OF EXAM: 11/01/2022 CLINICAL HISTORY: 62 years old Female. ICD-10 CODE: R05821 OSTEO R HIP Height: 5 ft 4 in Weight: 174 FRAX RISK QUESTIONS: Alcohol (3 or more units per day): no Family History (Parent hip fracture): no Glucocorticoids (More than 3mos): no (Ex: prednisone, prednisolone, methylprednisolone, dexamethasone, and hydrocortisone). History of Fracture in Adulthood: yes Secondary Osteoporosis: 1. Type 1 Diabetes: no 2. Hyperthyroidism: no 3. Menopause before 45: no 4. Malnutrition: no 5. Chronic liver disease: no Rheumatoid Arthritis: no Current Tobacco Use: no RISK FACTORS HISTORY OF: Surgery to Spine/Hip(right/left)/Wrist (right/left): no Family History of Osteoporosis: yes Active: yes Diet low in dairy products/other sources of calcium: no Postmenopausal woman: yes Take estrogen and/or progesterone medications: none now Lost more than 2 inches in height since high school: no Frequent falls: no Poor Health: good Hyperparathyroidism: no Adrenal Insufficiency: no MEDICATIONS: Additional Medications: PAXIL, Zetia, Crestor, vit d , zyrtec, Additional History: EXAM MEASUREMENTS: Bone mineral densitometry was performed using the [employer]. Bone mineral density as measured about the Lumbar spine is: ----- L1-L4(G/cm2): 1.194 T Score Values are as follows: ----- L1: -0.2 ----- L2: -0.3 ----- L3: -0.1 ----- L4: 0.7 ----- L1-L4: 0.1 Z Score Values are as follows: ----- L1: 0.7 ----- L2: 0.6 ----- L3: 0.8 ----- L4: 1.6 ----- L1-L4: 1.0 Bone mineral density has: increased 1.0 % since study of: 2019 Bone mineral density about the R hip (g/cm2): 0.783 Bone mineral density about the L hip (g/cm2): 0.830 T Score values are as follows: -----R Neck: -1.8 -----L Neck: -1.5 -----R Total: -0.9 -----L Total: -1.0 Z Score values are as follows: -----R Neck: -0.8 -----L Neck: -0.5 -----R Total: -0.2 -----L Total: -0.3 Bone mineral density has: decreased -9.1 % since study of: 2019 FRAX%s: The graph provided illustrates a 9.3 % chance for a major osteoporotic fx and a 1.1 % chance for the hips probability for fx in 10 years time. IMPRESSION: Osteopenia (T Score between -2.5 and -1). There is slightly increased risk of fracture and the patient may be considered for treatment. Re-Screen 2-5 years. NOTE: T-SCORE=SD OF THE YOUNG ADULT MEAN.
--- NOTE | 2022-11-02 08:14 | MM ---
Reason for Exam: Screening (asymptomatic). Last mammogram was performed 1 year(s) and 11 month(s) ago. Patient History: Menarche at age 17. First Full-Term at age 28. Hysterectomy at age 49. Postmenopausal. Patient has history of breast feeding. Patient used Estrogen for 2 years. Risk Values: Elin 5 year model risk: 1.5%. NCI Lifetime model risk: 7.2%. Prior Study Comparison: 10/14/2019 Bilateral Screening Mammogram, [facility]. 12/08/2020 Bilateral Screening Mammogram, [facility]. 12/15/2020 Right Diagnostic Mammogram, [facility]. Tissue Density: The breast tissue is heterogeneously dense. This may lower the sensitivity of mammography. Findings: Analyzed By CAD. There is no suspicious group of microcalcifications or new suspicious mass in either breast. Benign calcification within the right breast. Overall Assessment: Benign, BI-RAD 2 Management: Screening Mammogram of both breasts in 1 year. A clinical breast exam by your physician is recommended on an annual basis and results should be correlated with mammographic findings. Note on Elin scores and lifetime risk: 1. A Elin score greater than 3% is considered moderate risk. If this is the case, consider specialist referral to assess eligibility for a risk reducing agent. If overall lifetime risk for the development of breast cancer is 20% or higher, the patient may qualify for future screening with alternating mammogram and breast MRI. Electronically signed and approved by: Eber Magaña D.O.
== END | disposition home or self-care (01) ==
LOC: RADMAMWWP 12:56
PROVIDERS: ATTEND Internal Medicine
DX: Z12.31 Encounter for screening mammogram for malignant neoplasm of breast (principal); M85.89 Other specified disorders of bone density and structure, multiple sites; I65.23 Occlusion and stenosis of bilateral carotid arteries; Z78.0 Asymptomatic menopausal state
CPT/HCPCS: 77063; 77067; 77080; 93880

== ENCOUNTER → 2022-11-08 | Outpatient (CLI) | payer OTHER ==
--- NOTE | 2022-11-08 12:45 | CT ---
EXAMINATION TYPE: CT chest w con CT DLP: 284.5 mGycm, Automated exposure control for dose reduction was used. DATE OF EXAM: 11/08/2022 11:31 AM COMPARISON: None CLINICAL INDICATION:Female, 62 years old with history of J47.9 BRONCHIECTASIS; PHH, Bronchiectasis TECHNIQUE: Multiple axial images were obtained through the chest following the administration of 100 cc of Isovue 300. . Coronal and sagittal reformats reviewed. FINDINGS: LUNGS/ PLEURA: No pleural effusion, focal consolidation, or pneumothorax. Tree-in-bud nodular opaciti es within the anterior right upper lobe (series 205, image 29). Lingular 9 mm nodular density (series 205, image 43). AIRWAY: Patent and unremarkable.. HEART: Size within normal limits. No pericardial effusion. MEDIASTINUM: No evidence of adenopathy. VASCULATURE: No aortic aneurysm. MUSCULOSKELETAL: No acute osseous abnormalities SOFT TISSUES/LYMPH NODES: Unremarkable. LOWER NECK: No significant findings. UPPER ABDOMEN: There are 2 left hepatic lobe cysts with largest measuring up to 3.0 cm. Small hiatal hernia. Postcholecystectomy changes. Periampullary duodenal diverticulum. IMPRESSION: 1. Tree-in-bud nodular opacities within the anterior right upper lobe most consistent with an infecti ous/inflammatory bronchiolitis. 2. Lingular 9 mm nodular density. Follow-up CT chest in 3-6 months is recommended.
== END | disposition home or self-care (01) ==
LOC: RADCTMAIN 10:54
PROVIDERS: ATTEND Internal Medicine
DX: J47.9 Bronchiectasis, uncomplicated (principal); J98.4 Other disorders of lung
CPT/HCPCS: 71260; Q9967

== ENCOUNTER → 2022-11-15 | Outpatient (CLI) | payer OTHER ==
[2022-11-15 09:39] VITALS: BP 98/66; PULSE 67; RESP 17; TEMP 97.7
--- NOTE | 2022-11-15 10:22 | P.HPOB ---
History of Present Illness H&P Date: 11/15/22 Chief Complaint: The patient is here for her routine gynecologic exam. This is a 62-year-old with an LMP of 2008. She is status post vaginal hysterectomy for benign reasons. She has used estradiol vaginal cream for vaginal dryness associated with sexual intercourse. Her prescription ran out and the dryness has gotten worse. She states the estrogen vaginal cream is very helpful and would like to restart this. She is otherwise without complaints Review of Systems She has gained about 4 pounds over the past 2 years. She denies respiratory or cardiac problems. GI: Occasional gastric reflux symptoms. Past Medical History Past Medical History: GERD/Reflux Additional Past Medical History / Comment(s): History of intermittent SVT with PVCs(sees Dr. Tran). Hx occular migraines, hiatal hernia, benign paroxysmal postional vertigo. Osteopenia. 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 History of Any Multi-Drug Resistant Organisms: None Reported Past Surgical History: Appendectomy, Cholecystectomy, EPS, Hysterectomy, Tubal Ligation Additional Past Surgical History / Comment(s): Vaginal hysterectomy in 2008. D&C. Colonoscopy 2013., EGD, LOOP RECORDER placed and later removed. Past Anesthesia/Blood Transfusion Reactions: No Reported Reaction, Motion Si ckness Type of Cardiac Device: Loop Device Placement Date:: 01/2016 Past Psychological History: No Psychological Hx Reported Smoking Status: Never smoker Past Alcohol Use History: Rare (3 per year.) Past Drug Use History: None Reported Additional History: She has been since 1986 and is sexually active. 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 - Past Family History Father Family Medical History: Coronary Artery Disease (CAD), Myocardial Infarction (AL) Additional Family Medical History / Comment(s): . Mother Family Medical History: Cancer Additional Family Medical History / Comment(s): of esophageal cancer complete heart block with pacemaker Son(s) Additional Family Medical History / Comment(s): pts. son from hypertrophic cardiomyopathy 2006 Medications and Allergies Home Medications Medication Instructions Recorded Confirmed Type Cholecalciferol [Vitamin D3 (25 5,000 unit PO HS 01/11/16 11/15/22 History Mcg = 1000 Iu)] Omeprazole [PriLOSEC] 40 mg PO Q72H 10/01/18 11/15/22 History Acetaminophen [Tylenol] 325 mg PO DAILY PRN 10/14/19 11/15/22 History Cetirizine HCl [Zyrtec] 10 mg PO HS 10/14/19 11/15/22 History Estradiol Cream [Estrace Cream 1 gm VAGINAL DIRECTED #1 each 11/10/20 11/15/22 Rx 0.01%] Multivitamin [Multivitamins Adult 1 cap PO DAILY 11/10/20 11/15/22 History Gummies] PARoxetine [Paxil] 10 mg PO HS 01/31/21 11/15/22 History Rosuvastatin Calcium [Crestor] 20 mg PO HS 01/31/21 11/15/22 History Ezetimibe [Zetia] 10 mg PO DAILY 11/15/22 11/15/22 History Allergies Allergy/AdvReac Type Severity Reaction Status Date / Time Penicillins Allergy Rash/Hives Verified 11/15/22 09:35 Sulfa (Sulfonamide Allergy Rash/Hives Verified 11/15/22 09:35 Antibiotics) Exam Vital Signs Temp Pulse Resp BP Pulse Ox 11/15/22 09:36 97.7 F 67 17 98/66 97 Intake and Output 11/14/22 11/15/22 11/15/22 22:59 06:59 14:59 Other: Weight 80.739 kg Height 5 feet 4 inches, weight 177 pounds, BMI 30.6. This is a well-developed well-nourished white female who is alert and oriented times 3 in no acute distress. HEENT: Within normal limits. NECK: Supple without mass or thyromegaly. CHEST AND LUNGS: Clear to auscultation. HEART: Regular rate. 2 irregular beats were noted over the 15 second period. She states she sees her extension course counselor regularly for her history of PVCs. BREASTS: Are without mass or discharge. AXILLARY EXAM: Negative for adenopathy. BACK: Negative for CVA tenderness. ABDOMEN: Soft, nontender, without palpable masses. PELVIC EXAM: External genitalia appears normal with mild atrophy. Vagina appears normal with mild atrophy. There is no evidence of prolapse. Bimanual examination is negative for mass or tenderness. RECTAL EXAM: Rectovaginal exam is negative for mass or tenderness and is negative for occult blood. EXTREMITIES: Nontender. IMPRESSION: 1. 62-year-old menopausal female status post vaginal hysterectomy for benign reasons, with normal gynecologic exam. 2. The patient has done well using vaginal estrogen for vaginal dryness. She will be restarted on this. 3. Osteopenia. PLAN: 1. Pap smears have been discontinued. 2. Self breast awareness was discussed with the patient. We have also discussed symptoms associated with inflammatory breast cancer. 3. Screening mammogram was done on 11/01/2022 and was benign. She will repeat this after 1 year. 4. Osteoporosis prevention was discussed. I have stressed the importance of adequate calcium, vitamin D and regular exercise. Recommended amounts of calcium and vitamin D were also discussed. Bone density test was done on 11/01/2022. A decrease in bone density test was seen in both hips. We'll plan on repeating the bone density test in approximately 2 years. 5. A prescription for the estradiol vaginal cream, 1 g into the vagina 2 times weekly, will be sent to [facility] in [facility]. 6. She states she is planning to do her colonoscopy in the upcoming year through her PCP. 7. She was advised to return in one year for her annual well woman exam.
== END ==
LOC: WWCWWP 09:19
PROVIDERS: ATTEND Obstetrics & Gynecology
DX: N89.9 Noninflammatory disorder of vagina, unspecified (principal); K21.9 Gastro-esophageal reflux disease without esophagitis; M85.80 Other specified disorders of bone density and structure, unspecified site; Z90.710 Acquired absence of both cervix and uterus; Z78.0 Asymptomatic menopausal state; Z88.0 Allergy status to penicillin; Z88.2 Allergy status to sulfonamides

== ENCOUNTER → 2023-04-23 | Outpatient (CLI) | payer OTHER ==
--- NOTE | 2023-04-23 19:23 | CT ---
EXAMINATION TYPE: CT chest w con DATE OF EXAM: 04/23/2023 COMPARISON: 11/08/2022 HISTORY: Chronic cough CT DLP: 288.4 mGycm Automated exposure control for dose reduction was used. TECHNIQUE: CT scan of the chest is performed with IV Contrast, patient injected with 100 mL of Isovue 300. MIP Images are created on CT scanner and reviewed. 3D reconstructed images are created on an independent workstation and reviewed. FINDINGS: LUNGS: There has been no interval change in the mild focal area of interstitial nodular densities/tree-in-bu d density in the anterior right upper lobe. No new areas of abnormal consolidative interstitial densi ty seen. There is no pleural effusion, pleural thickening or pneumothorax. The great vessels chest are normal as no mediastinal, hilar or axillary adenopathy. Limited scanning through the upper abdomen reveals no gross. Incidental note is made of 2 well-circum scribed hypodensities in the lateral segment left lobe of liver most likely representing simple cysts . There is been no change compared to previous IMPRESSION: 1. No change in the mild tree-in-bud pattern of abnormal lung density in the anterior right upper lob e. 2. No new abnormality seen.
== END | disposition home or self-care (01) ==
LOC: RADCTMAIN 17:30
PROVIDERS: ATTEND Internal Medicine
DX: J98.4 Other disorders of lung (principal)
CPT/HCPCS: 71260; Q9967

== ENCOUNTER 2023-06-14 12:05 | Day surgery (SDC) | payer OTHER ==
[2023-06-14] MEDS ORDERED: LACTATED RINGERS 1,000 ML IV SCH (12:19)
[2023-06-14] MEDS ORDERED: LIDOCAINE 1% (10MG/ML) FOR IV START INTRADERMA PRN (12:19)
[2023-06-14] MEDS: LACTATED RINGERS 1,000 ML IV SCH (12:44)
[2023-06-14] MEDS: ATROPINE SULFATE 0.4 MG/ML 1 ML VIAL IM ONE (12:47)
[2023-06-14] MEDS ORDERED: LIDOCAINE 1% INJ 10MG/ML (20 ML MDV) ONE (12:51)
[2023-06-14] MEDS ORDERED: PROPOFOL 10 MG/ML 20 ML VIAL IV ONE (12:51)
[2023-06-14] MEDS ORDERED: fentaNYL (PF) 50 MCG/ML 2 ML AMP ONE (12:51)
[2023-06-14] MEDS: LIDOCAINE 2% INJ 20 MG/ML INTRATRACH ONE (12:58)
[2023-06-14 13:01] VITALS: TEMP 97.8
--- NOTE | 2023-06-14 13:33 | PCN ---
PROCEDURE NOTE PROCEDURES PERFORMED: Bronchoscopy, airway examination, therapeutic lavage, BAL right upper lobe, brushes right upper lobe. PREOPERATIVE DIAGNOSIS: Rule out atypical infection, right upper lobe. POSTOPERATIVE DIAGNOSIS: Rule out atypical infection, right upper lobe. FIRST LEVEL VIAL SEALER: Dr. Suly Sargent. The patient's procedure took place in [facility] endoscopy room #1. There was informed consent and universal timeout. ANESTHESIA PROVIDED: General anesthesia. DESCRIPTION OF PROCEDURE: The patient was sedated and being fully monitored. Next, the bronchoscope was placed through the right nostril through the right nasopharynx into the oropharynx. The hypopharynx was identified and topicalized. The hypopharyngeal structures, including anterior commissure, true cords, false cords, arytenoids, piriform sinuses, right and left, and epiglottis all appeared relatively normal. The glottic opening was topicalized. The bronchoscope was pushed through the glottic opening into the trachea. Trachea appeared normal. Tracheal jeremy was sharp. The right and left mainstem were topicalized. Next, I did a thorough evaluation of the left lung. Left upper lobe proper and its 2 segments, lingula and its 2 segments and left lower lobe and its 4 segments were all found to reveal evidence of moderate bronchitis. The mucosa was erythematous and hyperemic. There was no dominant mass or tumor. There was some mucosal friability. Next, on the right side, we evaluated the right upper lobe and its 3 segments, right middle lobe and its 2 segments, right lower lobe and its 5 segments. Again, there was moderate bronchitis throughout. The airways were erythematous and hyperemic. There was no dominant mass or tumor. There were minimal thin secretions. Next, the bronchoscope was wedged into the right upper lobe. We did brushes to the right upper lobe. Next, we did a formal BAL in the right upper lobe. The patient tolerated the procedure well. The fluid will be sent for analysis. About 30 mL of fluid was recovered. The patient will be moved to the recovery area, and then be recovered. I will speak to the patient's who is with her today. There was no immediate complication. The patient tolerated the procedure well. MMODL / IJN: [id number] /
[2023-06-14 13:42] VITALS: RESP 18
[2023-06-14 14:21] VITALS: BP 100/68; PULSE 79
[2023-06-14 22:12] LABS: Appearance,BF Cloudy (Clear); RBC, Body Fluid 2950 /UL (0-2000)
[2023-06-15 10:05] LABS: Nucleated Cells, Body Fluid 2640 /UL
== END 2023-06-14 14:01 | disposition home or self-care (01) ==
LOC: ORWHC2ENDO 12:05
PROVIDERS: ATTEND Internal Medicine Critical Care Medicine
DX: J40 Bronchitis, not specified as acute or chronic (principal); E78.5 Hyperlipidemia, unspecified; K21.00 Gastro-esophageal reflux disease with esophagitis, without bleeding; E55.9 Vitamin D deficiency, unspecified; F32.A Depression, unspecified; I10 Essential (primary) hypertension; J18.9 Pneumonia, unspecified organism; Z79.899 Other long term (current) drug therapy; Z79.51 Long term (current) use of inhaled steroids; Z88.2 Allergy status to sulfonamides; Z88.0 Allergy status to penicillin
CPT/HCPCS: 88104; 88108; 88305; 89050; 87070; 87205; 87116; 87102; 87206; 31623; 31624; J2001 ×2; J0461; J3010; J2704

== ENCOUNTER 2023-06-20 09:11 | Emergency (ER) | payer OTHER ==
[2023-06-20] MEDS: LORazepam 2 MG/ML INJ IV STA (09:55)
--- NOTE | 2023-06-20 09:57 | ED ---
General Adult HPI - General Chief complaint: Shortness of Breath Stated complaint: AN Time Seen by Provider: 06/20/23 09:15 Source: patient Mode of arrival: ambulatory Limitations: no limitations - History of Present Illness Initial comments: Dictation was produced using [employer] dictation software. please excuse any grammatical, word or spelling errors. Chief Complaint: 63-year-old female with extensive pulmonary history presents to the ER for dyspnea and panic History of Present Illness: Patient 63-year-old female she has past medical history of anxiety. She also has multiple cardiac and pulmonary comorbidities. She does follow-up with cardiology for SVT and premature atrial contractions. She does not take any medications for that. Patient has history of lung issues. She had a bronchial wash recently that was positive for fluid. Apparently there was also some food debris that was washed from her bronchus. Patient felt fine this morning and then all of a sudden she started to feel what she describes as impending doom. Patient has a history of anxiety she intermittently takes anxiety medications. The ROS documented in this emergency department record has been reviewed and confirmed by me. Those systems with pertinent positive or negative responses have been documented in the HPI. All other systems are other negative and/or noncontributory. - Related Data Home Medications Medication Instructions Recorded Confirmed Cetirizine HCl [Zyrtec] 10 mg PO HS PRN 10/14/19 06/20/23 Multivitamin [Multivitamins Adult 1 cap PO HS 11/10/20 06/20/23 Gummies] Ezetimibe [Zetia] 10 mg PO HS 11/15/22 06/20/23 Fluticasone Propionate [Flonase 1 spray EA NOSTRIL HS PRN 06/12/23 06/20/23 Allergy Relief] Albuterol Sulfate [Albuterol 2 puff PO RT-Q4H PRN 06/20/23 06/20/23 Sulfate Hfa] Cholecalciferol [Vitamin D3 (125 125 mcg PO HS 06/20/23 06/20/23 Mcg = 5000 Iu)] PARoxetine HCL [Paxil] 20 mg PO HS 06/20/23 06/20/23 Rosuvastatin Calcium [Crestor] 40 mg PO HS 06/20/23 06/20/23 Allergies Allergy/AdvReac Type Severity Reaction Status Date / Time Sulfa (Sulfonamide Allergy Severe Rash/Hives Verified 06/20/23 10:02 Antibiotics) Penicillins Allergy Rash/Hives Verified 06/20/23 10:02 Review of Systems ROS Statement: Those systems with pertinent positive or pertinent negative responses have been documented in the HPI. ROS Other: All systems not noted in ROS Statement are negative. Past Medical History Past Medical History: GERD/Reflux, Hyperlipidemia Additional Past Medical History / Comment(s): History of intermittent SVT PACs, with PVCs(sees Dr. Tran). Hx occular migraines, hiatal hernia, benign paroxysmal postional vertigo. Osteopenia. PAST HUC OB History of Any Multi-Drug Resistant Organisms: None Reported Past Surgical History: Appendectomy, Cholecystectomy, EPS, Hysterectomy, Tubal Ligation Additional Past Surgical History / Comment(s): Vaginal hysterectomy in 2008. D&C. Colonoscopy 2013., EGD, LOOP RECORDER placed and later removed. Past Anesthesia/Blood Transfusion Reactions: No Reported Reaction, Motion Sickness Type of Cardiac Device: Loop Device Placement Date:: 01/2016 Past Psychological History: No Psychological Hx Reported, Anxiety Smoking Status: Never smoker Past Alcohol Use History: Rare Past Drug Use History: None Reported - Past Family History Father Family Medical History: Coronary Artery Disease (CAD), Myocardial Infarction ([place]) Additional Family Medical History / Comment(s): . Mother Family Medical History: Cancer Additional Family Medical History / Comment(s): of esophageal cancer complete heart block with pacemaker Son(s) Additional Family Medical History / Comment(s): pts. son from [facility] rtrophic cardiomyopathy 2006 General Exam - General Exam Comments Initial Comments: PHYSICAL EXAM: General Impression: Alert and oriented x3, not in acute distress HEENT: Normocephalic atraumatic, extra-ocular movements intact, pupils equal and reactive to light bilaterally, mucous membranes moist. Cardiovascular: Heart regular rate and rhythm Chest: Able to complete full sentences, no retractions, no tachypnea Abdomen: abdomen soft, non-tender, non-distended, no organomegaly Musculoskeletal: Pulses present and equal in all extremities, no peripheral edema Motor: no focal deficits noted Neurological: CN II-XII grossly intact, no focal motor or sensory deficits noted Skin: Intact with no visualized rashes Psych: severely anxious Limitations: no limitations Course Vital Signs 06/20/23 06/20/23 06/20/23 09:12 09:30 11:00 Temperature 97.3 F L 97.5 F L Pulse Rate 105 H 79 Respiratory 18 24 18 Rate Blood Pressure 142/73 136/83 136/83 O2 Sat by Pulse 109 H 100 98 Oximetry 06/20/23 12:00 Temperature Pulse Rate Respiratory 20 Rate Blood Pressure 125/61 O2 Sat by Pulse 97 Oximetry EKG Findings - EKG Comments: EKG Findings:: My EKG interpretation: Ventricular rate 83, sinus rhythm,. 176, QRS 106, QTc 424. No MT prolongation, no QTC prolongation, no ST or T-wave changes noted. Overall, this EKG is unremarkable Medical Decision Making - Medical Decision Making Was pt. sent in by a medical professional or institution (, PA, GAME DESIGN INSTRUCTOR, urgent care, hospital, or fpc...) When possible be specific @ -No Did you speak to anyone other than the patient for history (EMS, parent, family, police, friend...)? What history was obtained from this source @ -No Did you review nursing and triage notes (agree or disagree)? Why? @ -I reviewed and agree with nursing and triage notes Were old charts reviewed (outside hosp., previous admission, EMS record, old EKG, old radiological studies, urgent care reports/EKG's, fpc records)? Report findings @ -No old charts were reviewed Differential Diagnosis (chest pain, altered mental status, abdominal pain women, abdominal pain men, vaginal bleeding, musculoskeletal, weakness, fever, dyspnea, syncope, headache, dizziness, GI bleed, back pain, seizure, CVA, palpatations, mental health)? @ -Differential Dyspnea: Coronary syndrome, arrhythmia, tamponade, asthma, COPD, pulmonary embolism, pneumonia, pneumothorax, pulmonary effusion, anaphylaxis, diabetic ketoacidosis, flailed chest, pulmonary contusion, diaphragmatic rupture, anemia, neuromuscular, this is not meant to be an all-inclusive list. EKG interpreted by me (3pts min.). @ -See above X-rays interpreted by me (1pt min.). @ -Chest x-ray is nonacute CT interpreted by me (1pt min.). @ -CT angiography of the chest shows no PE there is a small left anterior pulmonary mass patient was notified of U/S interpreted by me (1pt. min.). @ -None done What testing was considered but not performed or refused? (CT, X-rays, U/S, labs)? Why? @ -None What meds were considered but not given or refused? Why? @ -None Did you discuss the management of the patient with other professionals (professionals i.e. , PA, GAME DESIGN INSTRUCTOR, lab, RT, psych nurse, social media developer, planner internship, teacher, ammunition officer, skilled nursing case manager)? Give summary @ -No Was smoking cessation discussed for >3mins.? @ -No Was critical care preformed (if so, how long)? @ -No Were there social determinants of health that impacted care today? How? (Homelessness, low income, unemployed, alcoholism, drug addiction, transportation, low edu. Level, literacy, decrease access to med. care, penitentiary, rehab)? @ -No Was there de-escalation of care discussed even if they declined (Discuss DNR or withdrawal of care, Hospice)? DNR status @ -No What co-morbidities impacted this encounter? (DM, HTN, Smoking, COPD, CAD, Cancer, CVA, ARF, Chemo, Hep., AIDS, mental health diagnosis, sleep apnea, morbid obesity)? @ -None Was patient admitted / discharged? Hospital course, mention meds given and route, prescriptions, significant lab abnormalities, going to OR and other pertinent info. @ -64-year-old female presents emergency department chief complaint of dyspnea. Vital signs upon arrival are within acceptable limits. Patient appears to be anxious. Laboratory evaluation obtained. Troponin is negative. D-dimer is elevated 0.93. CT angiography shows no PE however there does appear to be an incidental finding of nodule that patient was notified of. Patient advised to follow-up with pulmonology. Patient given anxiolytic medication with resolution of her symptoms. Patient be discharged Undiagnosed new problem with uncertain prognosis? @ -No Drug Therapy requiring intensive monitoring for toxicity (Heparin, Nitro, Insulin, Cardizem)? @ -No Were any procedures done? @ -No Diagnosis/symptom? Acute, or Chronic, or Acute on Chronic? Uncomplicated (without systemic symptoms) or Complicated (systemic symptoms)? @ -Anxiety reaction Side effects of treatment? @ -No Exacerbation, Progression, or Severe Exacerbation? @ -No Poses a threat to life or bodily function? How? (Chest pain, [place], [place], pneumonia, PE, COPD, DKA, ARF, appy, cholecystitis, CVA, Diverticulitis, Homicidal, Suicidal, threat to staff... and all critical care pts) @ -No - Lab Data Result diagrams: 06/20/23 09:43 06/20/23 09:43 Lab Results 06/20/23 06/20/23 06/20/23 Range/Units 09:43 09:43 09:43 WBC 7.2 (3.8-10.6) k/uL RBC 4.89 (3.80-5.40) m/uL Hgb 14.9 (11.4-16.0) gm/dL Hct 46.5 H (34.0-46.0) % MCV 94.9 (80.0-100.0) fL MCH 30.5 (25.0-35.0) pg MCHC 32.2 (31.0-37.0) g/dL RDW 13.4 (11.5-15.5) % Plt Count 347 (150-450) k/uL MPV 8.0 Neutrophils % 59 % Lymphocytes % 32 % Monocytes % 5 % Eosinophils % 2 % Basophils % 0 % Neutrophils # 4.2 (1.3-7.7) k/uL Lymphocytes # 2.3 (1.0-4.8) k/uL Monocytes # 0.4 (0-1.0) k/uL Eosinophils # 0.1 (0-0.7) k/uL Basophils # 0.0 (0-0.2) k/uL D-Dimer 0.93 H (<0.60) mg/L FEU Sodium 141 (137-145) mmol/L Potassium 3.9 (3.5-5.1) mmol/L Chloride 106 (98-107) mmol/L Carbon Dioxide 22 (22-30) mmol/L Anion Gap 13 mmol/L BUN 13 (7-17) mg/dL Creatinine 0.69 (0.52-1.04) mg/dL Est GFR (CKD-EPI)AfAm >90 (>60 ml/min/1.73 sqM) Est GFR (CKD-EPI)NonAf >90 (>60 ml/min/1.73 sqM) Glucose 98 (74-99) mg/dL Calcium 10.0 (8.4-10.2) mg/dL Magnesium 2.2 (1.6-2.3) mg/dL Troponin I (0.000-0.034) ng/mL 06/20/23 Range/Units 09:43 WBC (3.8-10.6) k/uL RBC (3.80-5.40) m/uL Hgb (11.4-16.0) gm/dL Hct (34.0-46.0) % MCV (80.0-100.0) fL MCH (25.0-35.0) pg MCHC (31.0-37.0) g/dL RDW (11.5-15.5) % Plt Count (150-450) k/uL MPV Neutrophils % % Lymphocytes % % Monocytes % % Eosinophils % % Basophils % % Neutrophils # (1.3-7.7) k/uL Lymphocytes # (1.0-4.8) k/uL Monocytes # (0-1.0) k/uL Eosinophils # (0-0.7) k/uL Basophils # (0-0.2) k/uL D-Dimer (<0.60) mg/L FEU Sodium (137-145) mmol/L Potassium (3.5-5.1) mmol/L Chloride (98-107) mmol/L Carbon Dioxide (22-30) mmol/L Anion Gap mmol/L BUN (7-17) mg/dL Creatinine (0.52-1.04) mg/dL Est GFR (CKD-EPI)AfAm (>60 ml/min/1.73 sqM) Est GFR (CKD-EPI)NonAf (>60 ml/min/1.73 sqM) Glucose (74-99) mg/dL Calcium (8.4-10.2) mg/dL Magnesium (1.6-2.3) mg/dL Troponin I <0.012 (0.000-0.034) ng/mL Disposition Clinical Impression: Anxiety reaction Disposition: HOME SELF-CARE Condition: Good Instructions (If sedation given, give patient instructions): Pulmonary Nodules (ED) Is patient prescribed a controlled substance at d/c from ED?: No Referrals: Monica Porras MD [Primary Care Provider] - 1-2 days Donato Fernando DO [Doctor of Osteopathic Medicine] - 1-2 days Time of Disposition: 13:37
[2023-06-20 10:11] VITALS: TEMP 97.5
[2023-06-20 10:15] LABS: Basophils % (A) 0 %; Eosinophils # (A) 0.1 k/uL (0-0.7); Eosinophils % (A) 2 %; HCT 46.5 % (34.0-46.0); HGB 14.9 gm/dL (11.4-16.0); Lymphocytes # (A) 2.3 k/uL (1.0-4.8); Lymphocytes % (A) 32 %; MCH 30.5 pg (25.0-35.0); MCHC 32.2 g/dL (31.0-37.0); MCV 94.9 fL (80.0-100.0); Monocytes # (A) 0.4 k/uL (0-1.0); Monocytes % (A) 5 %; Neutrophils # (A) 4.2 k/uL (1.3-7.7); Neutrophils % (A) 59 %; Platelet Count 347 k/uL (150-450); RBC 4.89 m/uL (3.80-5.40); RDW 13.4 % (11.5-15.5); WBC 7.2 k/uL (3.8-10.6)
[2023-06-20 10:28] LABS: African American GFR (CKD) >90 (>60 ml/min/1.73 sqM); Anion Gap 13 mmol/L; Blood Urea Nitrogen 13 mg/dL (7-17); Carbon Dioxide 22 mmol/L (22-30); Chloride 106 mmol/L (98-107); Glucose 98 mg/dL (74-99); Magnesium 2.2 mg/dL (1.6-2.3); Non-African American GFR(CKD) >90 (>60 ml/min/1.73 sqM); Potassium 3.9 mmol/L (3.5-5.1); Sodium 141 mmol/L (137-145)
--- NOTE | 2023-06-20 10:51 | XR ---
EXAMINATION TYPE: XR chest 2V DATE OF EXAM: 06/20/2023 COMPARISON: 03/17/2011 HISTORY: Shortness of breath TECHNIQUE: Frontal and lateral views of the chest are obtained. FINDINGS: Scattered senescent parenchymal changes noted. Hyperinflation compatible with COPD. No evidence for infiltrate. No evidence for atelectasis. Heart size is stable. Mediastinal structures are stable and grossly unremarkable. No evidence for hilar prominence. Degenerative changes dorsal spine. IMPRESSION: 1. No evidence for acute pulmonary disease.
--- NOTE | 2023-06-20 12:45 | CT ---
CTA CHEST EXAMINATION TYPE: CT angio chest DATE OF EXAM: 06/20/2023 INDICATION: Shortness of breath and elevated d-dimer. Hx of recent lung washing for aspiration. CT DLP: 316.9 mGycm, Automated exposure control for dose reduction was used. CONTRAST: Patient injected with 68ml mL of Isovue 370. COMPARISON: 04/23/2023 TECHNIQUE: CT of the chest is performed on a spiral scan at 2 mm thick sections. Study is performed with intravenous contrast timed for evaluation for pulmonary embolism. This will limit additional po rtions of the evaluation. 3-D MIP images reconstructed by the technologist are reviewed on the compu ter in the coronal and sagittal planes. FINDINGS: No persistent filling defects are evident to suggest an acute pulmonary embolism. No mediastinal or hilar adenopathy enlarged by CT criteria is evident. The ascending aorta diameter at the level of the main pulmonary artery is 3.7 cm. The main pulmonary artery diameter at the bifurcation is 2.7 cm. There is a small hiatal hernia present. Some peribronchial thickening is in the right middle lobe. There is a small area of increased density measuring 0.8 x 1.8 cm. Series 406 image 103. Atelectasis or pneumonia can be considered. Underlying mass should be considered. Follow-up is recommended Limited CT sections were through the upper abdomen. Hepatic cysts are present. There is been a prior cholecystectomy. IMPRESSION: 1. No acute pulmonary embolism. 2. Nodular density within the anterior left lung. Follow-up is recommended. Differential diagnosis wo uld include atelectasis and pneumonia and mass. 3. Chronic bronchitis within the right mid lung, present previously
[2023-06-20 13:53] VITALS: BP 129/70; PULSE 85; RESP 16
== END 2023-06-20 13:43 | disposition home or self-care (01) ==
LOC: EC 09:11
DX: F41.1 Generalized anxiety disorder (principal); Z88.2 Allergy status to sulfonamides; Z88.0 Allergy status to penicillin
CPT/HCPCS: 36415; 93005; 85379; 80048; 83735; 84484; 85025; 71046; 71275; 99285; 96374; J2060; Q9967

== ENCOUNTER → 2023-07-04 | Outpatient (CLI) | payer OTHER ==
--- NOTE | 2023-07-04 11:47 | FL ---
EXAMINATION TYPE: FL barium swallow w video DATE OF EXAM: 07/04/2023 CLINICAL HISTORY: 63-year-old female unspecified Dysphagia. Patient with previous fluid aspiration as revealed by bronchoscopy. Persistent cough. Assess for aspiration. Total fluoroscopy time 1 minute 35 seconds. Total images: None. Real-time fluoroscopy support was provided to speech pathology. Total DAP: 20 mGycm2. TECHNIQUE: Deglutition study is performed utilizing thin liquid barium, barium thick pudding, and ba rium coated cracker. COMPARISON: None. FINDINGS: The oral and pharyngeal phases show satisfactory initiation and propagation with all modalities teste d. Normal mastication is seen with solid modalities tested. There is no evidence of penetration or aspiration with any modality tested. No significant pharyngeal residue was appreciated. There is mild to moderate thickening of the cricopharyngeus muscle. Both solid and liquid boluses wer e followed down the esophagus. There appears to be a tiny sliding hiatal hernia present. Esophagram c an be considered for more detailed assessment if indicated. IMPRESSION: No penetration or aspiration. [id number] CP muscle hypertrophy. The swallowed bolus was followed down the esophagus and there appears to be a tiny sliding hiatal hernia present. Conventional esophagram can further evaluate if clinically indicated. Please refer to speech therapist notes for further details if necessary.
== END | disposition home or self-care (01) ==
LOC: RADFLMAIN 10:59
PROVIDERS: ATTEND Internal Medicine Critical Care Medicine
DX: K44.9 Diaphragmatic hernia without obstruction or gangrene (principal); R13.10 Dysphagia, unspecified; M62.89 Other specified disorders of muscle
CPT/HCPCS: 74230